=== PATIENT | female | born 1970 | race African-American/Black ===

== ENCOUNTER → 2016-08-22 | Outpatient (CLI) | payer OTHER ==
[~2016-08-22] MED LIST: NAPROSYN500 MG PO; VOLTAREN75 MG PO
--- NOTE | ~2016-08-22 | CR170 ---
[facility] A Service of [facility] & [facility] RADIOLOGY TEXT RESULTS PATIENT: MARLENA JULIO LOCATION: [facility] : 68 UNIT #: [id number] AGE: [address]: Tavia Coker APRN SEX: F ORDER DR: [id number] [facility] [address] [place], [place] [address] [id number] O MR#: [id number] Acc #: [id number] NAME: MARLENA JULIO : 1970 SEX: F STUDY DATE/TIME: 08/22/2016 10:01 UNIT: [facility] ROOM: STUDY DESCRIPTION: CR Knee 2 Views Rt Attending Physician: Tavia Coker Aprn Referring Physician: Tavia Coker Aprn Ordering Physician: Tavia Coker Aprn Primary Care Physician: Tavia Coker Aprn MEDICAL IMAGING REPORT This report is preliminary unless electronic signature is present EXAM Right knee, 08/22/2016. HISTORY 46-year-old female with right knee pain for 6 months. No specific injury. COMPARISON None FINDINGS 2 views of the right knee demonstrated no acute fracture or dislocation. No joint effusion. Joint spaces are within normal limits. Soft tissues are unremarkable. IMPRESSION Unremarkable right knee. Dictated by... Vince De León M.D. THIS IS AN ELECTRONICALLY VERIFIED REPORT Vince De León M.D. at 08/23/2016 3:38 PM BIJAL/kimberly TD: 08/22/2016 16:00 JOB #: [id number] MEDICAL IMAGING REPORT COPY
== END | disposition home or self-care (01) ==
LOC: CRAD 09:47
DX: M25.561 Pain in right knee (principal)
CPT/HCPCS: 73560